=== PATIENT | female | born 1995 | race American Indian/Alaskan Native ===

== ENCOUNTER 2018-01-31 22:44 | Emergency (ER) | payer SELFPAY ==
[2018-02-01 02:08] LABS: Bilirubin,Urine NEG (Negative); Blood,Urine NEG (Negative); Color,Urine Yellow (Yellow); Mucus,Urine FEW /HPF; Protein,Urine <15 mg/dL mg/dL (Negative); Urobilinogen,Urine < 2.0 mg/dL (<2.0)
[2018-02-01 02:11] LABS: HCG Qualitative,Urine Negative (Negative)
--- NOTE | 2018-02-01 02:53 | Emergency Department Report ---
ED Female HPI - General Chief complaint: Urogenital-Female Stated complaint: VAG D/C WITH VAG BURNING Time Seen by Provider: 02/01/18 02:44 Source: patient Mode of arrival: Ambulatory Limitations: No Limitations - History of Present Illness Initial comments: This is a 22-year-old female who presents to the complaining of vaginal discharge and vaginal irritation from the past 3 days. Patient states she has been experiencing a bit malodorous vaginal discharge with vaginal discharge. She states that her last menstrual period was late last month at the end of December. She denies fevers/chills/nausea vomiting/abdominal pelvic pain/dysuria/ frequency or urgency. MD Complaint: vaginal discharge -: days(s) Are you Now?: No - Related Data Previous Rx's Medication Instructions Recorded Last Taken Type Docusate Sodium [Colace] 100 mg PO BID PRN #60 capsule 09/26/14 Unknown Rx Lactulose 10 gm PO ONCE #1 ml 09/26/14 Unknown Rx Phenyleph/Pramoxin/Glycr/W.pet 51 gm RC DAILY PRN #1 tube 09/26/14 Unknown Rx [Preparation H Cream] Polyethylene Glycol 3350 [Miralax 17 gm PO QDAY PRN #7 powd.pack 09/26/14 Unknown Rx 3350] Ibuprofen [Motrin] 600 mg PO Q8H PRN #30 tablet 11/28/14 Unknown Rx Sulfamethoxazole/Trimethoprim 1 each PO BID #10 tablet 11/28/14 Unknown Rx [Bactrim Ds] traMADol [Ultram] 50 mg PO Q6HR PRN #14 tablet 11/28/14 Unknown Rx Fluconazole [Diflucan TAB] 150 mg PO DAILY 3 Days #3 tablet 02/01/18 Unknown Rx metroNIDAZOLE [Flagyl TAB] 500 mg PO Q12HR #14 tab 02/01/18 Unknown Rx Allergies Allergy/AdvReac Type Severity Reaction Status Date / Time No Known Allergies Allergy Unverified 09/26/14 14:37 ED Review of Systems ROS: Stated complaint: VAG D/C WITH VAG BURNING Other details as noted in HPI Constitutional: denies: chills, fever Eyes: denies: eye pain, eye discharge, vision change ENT: denies: ear pain, throat pain Respiratory: denies: cough, shortness of breath, wheezing Cardiovascular: denies: chest pain, palpitations Endocrine: no symptoms reported Gastrointestinal: denies: abdominal pain, nausea, diarrhea Genitourinary: discharge. denies: urgency, dysuria, frequency, hematuria Musculoskeletal: denies: back pain, joint swelling, arthralgia Skin: denies: rash, lesions Neurological: denies: headache, weakness, paresthesias Psychiatric: denies: anxiety, depression Hematological/Lymphatic: denies: easy bleeding, easy bruising ED Past Medical Hx - Past Medical History Previous Medical History?: No - Surgical History Past Surgical History?: No - Social History Smoking Status: Former Smoker Substance Use Type: Marijuana - Medications Home Medications: Home Medications Medication Instructions Recorded Confirmed Last Taken Type Docusate Sodium [Colace] 100 mg PO BID PRN #60 capsule 09/26/14 Unknown Rx Lactulose 10 gm PO ONCE #1 ml 09/26/14 Unknown Rx Phenyleph/Pramoxin/Glycr/W.pet 51 gm RC DAILY PRN #1 tube 09/26/14 Unknown Rx [Preparation H Cream] Polyethylene Glycol 3350 [Miralax 17 gm PO QDAY PRN #7 powd.pack 09/26/14 Unknown Rx 3350] Ibuprofen [Motrin] 600 mg PO Q8H PRN #30 tablet 11/28/14 Unknown Rx Sulfamethoxazole/Trimethoprim 1 each PO BID #10 tablet 11/28/14 Unknown Rx [Bactrim Ds] traMADol [Ultram] 50 mg PO Q6HR PRN #14 tablet 11/28/14 Unknown Rx Fluconazole [Diflucan TAB] 150 mg PO DAILY 3 Days #3 tablet 02/01/18 Unknown Rx metroNIDAZOLE [Flagyl TAB] 500 mg PO Q12HR #14 tab 02/01/18 Unknown Rx ED Physical Exam - General Limitations: No Limitations General appearance: alert, in no apparent distress - Head Head exam: Present: atraumatic, normocephalic - Eye Eye exam: Present: normal appearance - ENT ENT exam: Present: mucous membranes moist - Neck Neck exam: Present: normal inspection - Respiratory Respiratory exam: Present: normal lung sounds bilaterally. Absent: respiratory distress - Cardiovascular Cardiovascular Exam: Present: regular rate, normal rhythm. Absent: systolic murmur, diastolic murmur, rubs, gallop - GI/Abdominal GI/Abdominal exam: Present: soft, normal bowel sounds. Absent: distended, tenderness, guarding, rebound, mass - External exam: Present: normal external exam. Absent: erythema, swelling, lesions, lacerations, bleeding Speculum exam: Present: vaginal discharge, cervical discharge. Absent: erythema , vaginal bleeding, foreign body, laceration Bi-manual exam: Present: normal bi-manual exam. Absent: cervical motion tendernes, adnexal tenderness, uterine enlargement, uterine tenderness - Extremities Exam Extremities exam: Present: normal inspection - Back Exam Back exam: Present: normal inspection - Neurological Exam Neurological exam: Present: alert, oriented X3, normal gait - Psychiatric Psychiatric exam: Present: normal affect, normal mood - Skin Skin exam: Present: warm, dry, intact, normal color. Absent: rash ED Course Vital Signs 01/31/18 02/01/18 22:43 04:00 Temperature 98.3 F Pulse Rate 104 H 92 H Respiratory 18 18 Rate Blood Pressure 100/61 Blood Pressure 108/62 [Left] O2 Sat by Pulse 98 98 Oximetry ED Medical Decision Making - Lab Data Laboratory Last Values Urine Color Yellow (Yellow) 02/01/18 01:55 Urine Turbidity Clear (Clear) 02/01/18 01:55 Urine pH 5.0 (5.0-7.0) 02/01/18 01:55 Ur Specific [place] 1.029 (1.003-1.030) 02/01/18 01:55 Urine Protein <15 mg/dl mg/dL (Negative) 02/01/18 01:55 Urine Glucose (UA) Neg mg/dL (Negative) 02/01/18 01:55 Urine Ketones Neg mg/dL (Negative) 02/01/18 01:55 Urine Blood Neg (Negative) 02/01/18 01:55 Urine Nitrite Neg (Negative) 02/01/18 01:55 Urine Bilirubin Neg (Negative) 02/01/18 01:55 Urine Urobilinogen < 2.0 mg/dL (<2.0) 02/01/18 01:55 Ur Leukocyte Esterase Neg (Negative) 02/01/18 01:55 Urine WBC (Auto) 2.0 /HPF (0.0-6.0) 02/01/18 01:55 Urine RBC (Auto) 2.0 /HPF (0.0-6.0) 02/01/18 01:55 U Epithel Cells (Auto) 4.0 /HPF (0-13.0) 02/01/18 01:55 Urine Mucus Few /HPF 02/01/18 01:55 Urine HCG, Qual Negative (Negative) 02/01/18 01:55 - Medical Decision Making This is a 22-year-old female presents with bacterial and candidal vaginitis ED course: Urinalysis negative urine test negative, wet prep and chlamydia cultures collected. Wet prep positive for clue cells and yeast, I discussed this findings with the patient. I discussed with the patient follow-up with [facility] doctor as referred Vital signs are normal patient is in acute distress. Patient will be sent home on medication to treat these symptoms. Discussed with patient is to call for test results in 3 days. Critical care attestation.: If time is entered above; I have spent that time in minutes in the direct care of this critically ill patient, excluding procedure time. ED Disposition Clinical Impression: Bacterial vaginosis, Candidal vulvovaginitis Disposition: TO HOME OR SELFCARE Is pt being admited?: No Does the pt Need Aspirin: No Condition: Stable Instructions: Bacterial Vaginosis (ED), Vulvovaginal Candidiasis (ED), Vaginitis (ED) Additional Instructions: Make sure to follow up with the primary care physician as discussed. Take all your medications as you've been prescribed. If you have any worsening symptoms or develop new symptoms please return to ED immediately. Prescriptions: Fluconazole [Diflucan TAB] 150 mg PO DAILY 3 Days #3 tablet metroNIDAZOLE [Flagyl TAB] 500 mg PO Q12HR #14 tab Referrals: TABATHA HUGHES MD [Primary Care Provider] - 3-5 Days [facility] [Outside] - 3-5 Days [facility] [Outside] - 3-5 Days SILVER QUARLES MD [Referring] - 3-5 Days Forms: STI Treatment and Prevention, Work/School Release Form(ED) Time of Disposition: 03:26
[2018-02-01 05:04] VITALS: BP 108/62
== END 2018-02-01 04:00 | disposition home or self-care (01) ==
LOC: ED 22:44
DX: N76.0 Acute vaginitis (principal); B37.3 Candidiasis of vulva and vagina; F12.10 Cannabis abuse, uncomplicated
CPT/HCPCS: 81001; 81025; 87086; 87210; 87591

== ENCOUNTER 2022-04-03 04:54 | Emergency (ER) | payer SELFPAY ==
[2022-04-03 06:07] LABS: Basophils % (Auto) 0.5 % (0.0-1.8); Eosinophils # (Auto) 0.1 K/mm3 (0.0-0.4); Eosinophils % (Auto) 1.6 % (0.0-4.3); Hematocrit 41.2 % (30.3-42.9); Hemoglobin 13.7 gm/dl (10.1-14.3); Lymphocytes # (Auto) 1.9 K/mm3 (1.2-5.4); Lymphocytes % (Auto) 24.4 % (13.4-35.0); Mean Corpuscular HGB Conc 33 % (30-34); Mean Corpuscular Volume 84 fl (79-97); Monocytes # (Auto) 0.4 K/mm3 (0.0-0.8); Monocytes % (Auto) 5.6 % (0.0-7.3); Platelet Count 250 K/mm3 (140-440); Red Cell Distribution Width 14.1 % (13.2-15.2)
[2022-04-03 06:25] LABS: Alanine Aminotransferase 15 units/L (7-56); Albumin 4.3 g/dL (3.9-5); BUN/Creatinine Ratio 15; Blood Urea Nitrogen 12 mg/dL (7-17); Calcium 9.4 mg/dL (8.4-10.2); Hemolysis Index 8
[2022-04-03 14:28] LABS: Bilirubin,Urine NEG (Negative); Blood,Urine NEG (Negative); Color,Urine Yellow (Yellow); Protein,Urine <15 mg/dL mg/dL (Negative); Urobilinogen,Urine < 2.0 mg/dL (<2.0)
[2022-04-03 14:41] LABS: Mucus,Urine 1+ /HPF
[2022-04-03] MEDS ORDERED: DICYCLOMINE 10 MG/5 ML ORAL LIQD PO ONE (17:41)
[2022-04-03] MEDS ORDERED: ALUM-MAG HYDROXIDE-SIMETHICONE 200-200-20MG/5ML ORAL LIQD 30 ML PO ONE (17:41)
[2022-04-03] MEDS ORDERED: LIDOCAINE VISCOUS 2% 15 ML ORAL LIQD PO ONE (17:41)
[2022-04-03 18:51] VITALS: BP 112/78
--- NOTE | 2022-04-03 19:06 | Emergency Department Report ---
ED Abdominal Pain HPI - General Chief Complaint: Abdominal Pain Stated Complaint: FEVER/FEEL BAD Time Seen by Provider: 04/03/22 17:33 Source: patient Mode of arrival: Ambulatory Limitations: No Limitations - History of Present Illness Initial Comments: 26-year-old black female with no past medical history presents to the emergency department for evaluation of few day history of intermittent nausea, vomiting, and abdominal pain and cramping. She states that when she has the pain, it is associated with intense nausea also. She states that she had a fever of 102 yesterday that has since resolved. She states that pain is worse is 8 out of 10 and significantly worse in the early a.m. She states that pain feels like it moves from her middle abdomen up to under her ribs when it happens. She denies dysuria and vaginal discharge. -: Gradual, days(s) (2-3) Location: LUQ, RUQ Radiation: none Migration to: no migration Severity scale (0 -10): 5 Quality: cramping Consistency: intermittent Associated Symptoms: nausea, vomiting, fever. denies: diarrhea, chills, dysuria, hematemesis, hematochezia, melena, hematuria, anorexia, syncope - Related Data LMP (females 10-50): last week Previous Rx's Medication Instructions Recorded Last Taken Type Docusate Sodium [Colace] 100 mg PO BID PRN #60 capsule 09/26/14 Unknown Rx Lactulose 10 gm PO ONCE #1 ml 09/26/14 Unknown Rx Phenyleph/Pramoxin/Glycr/W.pet 51 gm RC DAILY PRN #1 tube 09/26/14 Unknown Rx [Preparation H Cream] polyethylene glycoL 3350 [Miralax 17 gm PO QDAY PRN #7 powd.pack 09/26/14 Unknown Rx 3350] Ibuprofen [Motrin] 600 mg PO Q8H PRN #30 tablet 11/28/14 Unknown Rx Sulfamethoxazole/Trimethoprim 1 each PO BID #10 tablet 11/28/14 Unknown Rx [Bactrim Ds] traMADoL [Ultram] 50 mg PO Q6HR PRN #14 tablet 11/28/14 Unknown Rx Fluconazole (Nf) [Diflucan TAB] 150 mg PO DAILY 3 Days #3 tablet 02/01/18 Unknown Rx metroNIDAZOLE [Flagyl TAB] 500 mg PO Q12HR #14 tab 02/01/18 Unknown Rx Dicyclomine [Bentyl] 20 mg PO QID PRN #30 tablet 04/03/22 Unknown Rx Ondansetron [Zofran Odt] 4 mg PO Q8HR PRN #12 tab.rapdis 04/03/22 Unknown Rx Allergies Allergy/AdvReac Type Severity Reaction Status Date / Time No Known Allergies Allergy Unverified 09/26/14 14:37 ED Review of Systems ROS: Stated complaint: FEVER/FEEL BAD Other details as noted in HPI Comment: All other systems reviewed and negative Constitutional: fever. denies: chills, malaise, weakness Eyes: denies: eye discharge, vision change ENT: denies: throat pain, congestion Respiratory: denies: cough, shortness of breath, SOB with exertion, SOB at rest, stridor, wheezing Cardiovascular: denies: chest pain, palpitations, dyspnea on exertion, orthopnea, edema, syncope, paroxysmal nocturnal dyspnea Gastrointestinal: abdominal pain, nausea, vomiting. denies: diarrhea, hem atemesis, melena, hematochezia Genitourinary: denies: urgency, dysuria, frequency, hematuria, discharge, abnormal menses, dyspareunia Musculoskeletal: denies: back pain Skin: denies: rash, lesions Neurological: denies: headache, weakness ED Past Medical Hx - Social History Smoking Status: Former Smoker Substance Use Type: Marijuana - Medications Home Medications: Home Medications Medication Instructions Recorded Confirmed Last Taken Type Docusate Sodium [Colace] 100 mg PO BID PRN #60 capsule 09/26/14 Unknown Rx Lactulose 10 gm PO ONCE #1 ml 09/26/14 Unknown Rx Phenyleph/Pramoxin/Glycr/W.pet 51 gm RC DAILY PRN #1 tube 09/26/14 Unknown Rx [Preparation H Cream] polyethylene glycoL 3350 [Miralax 17 gm PO QDAY PRN #7 powd.pack 09/26/14 Unknown Rx 3350] Ibuprofen [Motrin] 600 mg PO Q8H PRN #30 tablet 11/28/14 Unknown Rx Sulfamethoxazole/Trimethoprim 1 each PO BID #10 tablet 11/28/14 Unknown Rx [Bactrim Ds] traMADoL [Ultram] 50 mg PO Q6HR PRN #14 tablet 11/28/14 Unknown Rx Fluconazole (Nf) [Diflucan TAB] 150 mg PO DAILY 3 Days #3 tablet 02/01/18 Unknown Rx metroNIDAZOLE [Flagyl TAB] 500 mg PO Q12HR #14 tab 02/01/18 Unknown Rx Dicyclomine [Bentyl] 20 mg PO QID PRN #30 tablet 04/03/22 Unknown Rx Ondansetron [Zofran Odt] 4 mg PO Q8HR PRN #12 tab.rapdis 04/03/22 Unknown Rx ED Physical Exam - General Limitations: No Limitations General appearance: alert, in no apparent distress - Head Head exam: Present: atraumatic, normocephalic - Eye Eye exam: Present: normal appearance. Absent: scleral icterus, conjunctival injection, periorbital swelling - ENT ENT exam: Present: normal exam, normal orophraynx - Neck Neck exam: Present: normal inspection, full ROM. Absent: tenderness, lymphadenopathy - Respiratory Respiratory exam: Present: normal lung sounds bilaterally. Absent: respiratory distress, wheezes, rales, rhonchi, stridor, chest wall tenderness - Cardiovascular Cardiovascular Exam: Present: regular rate, normal heart sounds - GI/Abdominal GI/Abdominal exam: Present: soft, normal bowel sounds. Absent: distended, tend erness, guarding, rebound, rigid - Extremities Exam Extremities exam: Present: normal inspection, full ROM, normal capillary refill. Absent: tenderness, pedal edema, joint swelling, calf tenderness - Back Exam Back exam: Present: normal inspection. Absent: CVA tenderness (R), CVA tenderness (L), vertebral tenderness - Neurological Exam Neurological exam: Present: alert, oriented X3, CN II-XII intact, normal gait, reflexes normal. Absent: motor sensory deficit - Psychiatric Psychiatric exam: Present: normal affect, normal mood - Skin Skin exam: Present: warm, dry, intact, normal color ED Course Vital Signs 04/03/22 04/03/22 04/03/22 04:54 16:39 18:27 Temperature 98.1 F 97.4 F L Pulse Rate 89 72 Respiratory 16 18 Rate Blood Pressure 97/65 Blood Pressure 129/84 [Right] O2 Sat by Pulse 97 100 100 Oximetry 04/03/22 18:49 Temperature 98.9 F Pulse Rate 67 Respiratory 12 Rate Blood Pressure Blood Pressure 112/78 [Right] O2 Sat by Pulse 98 Oximetry - Reevaluation(s) Reevaluation #1: 04/03/22 19:02 Abdominal pain and all symptoms resolved and patient states that she feels much better. ED Medical Decision Making - Lab Data Result diagrams: 04/03/22 05:48 04/03/22 05:48 - Medical Decision Making 26-year-old black female with no past medical history presents to the emergency department for evaluation of few day history of intermittent nausea, vomiting, and abdominal pain and cramping. She states that when she has the pain, it is associated with intense nausea also. She states that she had a fever of 102 yesterday that has since resolved. She states that pain is worse is 8 out of 10 and significantly worse in the early a.m. She states that pain feels like it moves from her middle abdomen up to under her ribs when it happens. She denies dysuria and vaginal discharge. Physical exam unremarkable. Labs and urine with no acute abnormalities noted. Patient given GI cocktail and symptoms totally resolved. Patient will be discharged home with Bentyl and Zofran to use as needed and advised to follow-up with her primary care provider if no improvement or worsening symptoms. She is advised to increase intake of noncaffeinated fluids and return to the emergency department as needed. She verbalizes understanding of and agreement with plan of care. Critical care attestation.: If time is entered above; I have spent that time in minutes in the direct care of this critically ill patient, excluding procedure time. ED Disposition Clinical Impression: Abdominal cramping Disposition: 01 HOME / SELF CARE / HOMELESS Is pt being admited?: No Does the pt Need Aspirin: No Condition: Stable Instructions: Viral Gastroenteritis, Adult, [id number], Abdominal Pain, Adult, [id number], Abdominal Pain (ED) Additional Instructions: Take medications as prescribed. Increase intake of noncaffeinated fluids. Follow-up with primary care provider if no improvement or worsening symptoms. Return to the emergency department as needed. Prescriptions: Dicyclomine [Bentyl] 20 mg PO QID PRN #30 tablet PRN Reason: Pain, Moderate (4-6) Ondansetron [Zofran Odt] 4 mg PO Q8HR PRN #12 tab.rapdis PRN Reason: Nausea And Vomiting Referrals: PRIMARY CARE, [Primary Care Provider] - 3-5 Days Forms: Work/School Release Form(ED) Time of Disposition: 19:05
== END 2022-04-03 18:49 | disposition home or self-care (01) ==
LOC: ED 04:54
DX: R10.11 Right upper quadrant pain (principal); R10.12 Left upper quadrant pain; Z87.891 Personal history of nicotine dependence
CPT/HCPCS: 36415; 80053; 81001; 84703; 85025; 99283